=== PATIENT | male | born 1990 | race Caucasian/White ===

== ENCOUNTER 2017-12-10 15:55 | Emergency (ER) | payer BC, SELFPAY ==
[2017-12-10 15:57] VITALS: BP 140/72; PULSE 88; RESP 16; TEMP 36.5; O2SAT 99; BMI 29.0
--- NOTE | 2017-12-10 16:08 | EKG12_ITS ---
Test Reason : COUGH Blood Pressure : / mmHG Vent. Rate : 077 BPM Atrial Rate : 077 BPM P-R Int : 156 ms QRS Dur : 086 ms QT Int : 350 ms P-R-T Axes : 002 050 050 degrees QTc Int : 396 ms Sinus rhythm with marked sinus arrhythmia Otherwise normal ECG Confirmed by TONEY ZACARIAS, SUAD ([id number]), graphic editor PIPPA LACEY ([id number] on 12/12/2017 1:12:08 PM Referred By: QUIANA Confirmed By:SUAD ZIEGLER MD
--- NOTE | 2017-12-10 16:08 | RAD_ITS ---
STUDY: X-RAY CHEST REASON FOR EXAM: Male, 27 years old. Chest pain and short of breath. Asthma. TECHNIQUE: Frontal and lateral views of the chest. COMPARISON: 02/23/2016. FINDINGS: The lungs are clear and expanded. There is no demonstrated pleural abnormality. Normal size heart. Normal mediastinum and karuna. Normal visualized pulmonary arteries. Normal visualized aortic arch and descending thoracic aorta. Normal visualized thoracic spine. Normal visualized ribs, clavicles, and shoulders. There is no demonstrated abnormality of the visualized soft tissue structures of the upper abdomen. RAD/Chest PA and Lateral IMPRESSION: Normal x-ray examination of the chest. Electronically Signed: Timothy Gonzáles MD at 16:42 EDT , Service support ,
[2017-12-10 16:24] LABS: Absolute Lymphocyte Count 1.96 X10^3/ul (0.83-4.51); Absolute Neutrophil Count 7.9 X10^3/uL (2.0-7.7); Basophil# 0.02 X10^3/uL; Basophil% 0.2 % (0-1); Eosinophil# 0.18 X10^3/uL; Eosinophils% 1.6 % (0-5); Hematocrit 45.1 % (40-54); Hemoglobin 15.8 g/dl (13.0-16.5); Lymphocyte # 1.96 X10^3/ul (4.0); Lymphocyte % 17.5 % (19-41); Mean Corpuscular Hgb 31.4 pg (27.0-32.0); Mean Corpuscular Volume 89.7 fL (80-94); Monocyte# 1.15 X10^3/uL; Monocyte% 10.3 % (0-10); Neutrophil # 7.87 X10^3/uL (2.7-7.7); Neutrophil % 70.1 % (47-70); Platelet Count 289 K/mm3 (150-450); RBC Distribution Width CV 13.4 % (11.6-14.6); RBC Distribution Width SD 43.4 fl (35.1-43.9); Red Blood Count 5.03 M/mm3 (4.6-6.2); White Blood Count 11.2 K/mm3 (4.4-11.0)
[2017-12-10 16:26] LABS: POSITIVE COUNT NO; POSITIVE DIFFERENTIAL NO; POSITIVE MORPHOLOGY NO
[2017-12-10 16:35] LABS: Erythrocyte Sedimentation Rate 7 mm/hr (0-15)
[2017-12-10 16:53] LABS: D-Dimer Quantitative (DVT/PE) 0.34 FEU/ug/m (0.27-0.49)
--- NOTE | 2017-12-10 16:58 | ED.VISSUMM ---
- ER Visit Summary Date of Service: 12/10/17 Chief Complaint: [Chest pain and shortness of breath] History of Present Illness: The patient is a 27 M [presents to the emergency department with complaint of chest discomfort and shortness of breath over last 2 weeks. Patient's had a slight cough that is mostly productive of some white phlegm. Patient has not had fever. Patient denies recent travel or surgery. Patient states that he will intermittently have pain when he tries to laugh or cough. Patient describes tightness in the chest at times. Patient feels short of breath with activity and exertion. No history of blood clots. No history of asthma. Patient denies sick contacts.] Physical Examination: [HEENT-PERRLA, EOMI. Cranial nerves II through XII grossly intact. TMs clear. Mucous membranes moist. No adenopathy. Cardiovascular-regular rate and rhythm without murmur or ectopy Lungs-clear to auscultation, chest wall stable without crepitus or subcu emphysema. Chest wall not tender. Abdomen-normoactive bowel sounds, soft, nontender, no rebound or rigidity, no peritoneal signs. Extremities-intact ?4, normal range of motion, normal pulses, atraumatic] Test Results: [EKG obtained on arrival showed a sinus rhythm with a ventricular rate of 77 bpm. CBC with differential digital and 11.2, hemoglobin 15.8, hematocrit 45, platelets 289. Sed rate was normal at 7. D-dimer is normal 0.34.] Troponin was less than 0.015. Emergency Department Course and Treatment: [] Treatment Plan: [Patient will be dispensed an albuterol MDI and will be given a prescription for naproxen. Patient will be referred to primary care physician international affairs vice president for no doc for follow-up. At this point etiology of symptoms unclear. Patient was advised to quit smoking. I do not feel his chest pain is cardiac in nature. I do not see an infectious etiology to treat with antibiotics at this point.] Disposition: [Discharged home in stable condition] Impression: [Chest pain-etiology uncertain Dyspnea] This note was generated with [employer] dictation software. It may contain incorrect words, spelling, and punctuation that were not noted in review of the chart prior to signing ED Disposition - Plan for ED Patient: Chief Complaint: Cough Referrals: Care Physician,No Primary [Primary Care Provider] -
--- NOTE | 2017-12-10 17:19 | ED.DEP ---
ED Disposition - Plan for ED Patient: Chief Complaint: Cough Instructions: ED Chest Pain NonCardiac, ED Dyspnea Shortness of Breath Prescriptions: Naproxen [Naprosyn] 500 mg PO BID PRN #20 tab Referrals: Care Physician,No Primary [Primary Care Provider] - Jatin Poole MD [STAFF PHYSICIAN] -
[2017-12-10 17:31] VITALS: RESP 18; O2SAT 96
== END 2017-12-10 17:34 | disposition home or self-care (01) ==
LOC: ED 17:01
PROVIDERS: Emergency Provider Emergency Medicine
DX: R07.9 Chest pain, unspecified (principal); R06.00 Dyspnea, unspecified; Z72.0 Tobacco use
CPT/HCPCS: 71046; 84484; 85025; 85379; 85652; 93005; 99284; A4216

== ENCOUNTER → 2020-02-04 | Outpatient (CLI) | payer OTHER, SELFPAY | END | disposition home or self-care (01) | PROVIDERS: Referring Provider Registered Nurse; Visit Provider Registered Nurse | DX: Z20.828 Contact with and (suspected) exposure to other viral communicable diseases (principal) | CPT/HCPCS: 87635; C9803; U0003 ==